=== PATIENT | female | born 1960 | race Caucasian/White ===

== ENCOUNTER 2020-06-21 08:15 | Outpatient (RCR) | payer MEDICARE, MEDICAID, SELFPAY ==
--- NOTE | 2020-05-25 15:24 | HO.PS.ADMBH ---
HPI Chief Complaint: depression Sources of Information: patient interviewed and chart reviewed HPI Narrative: I stopped all of my medications for a week. (Week of 05/15/20). I have never been to that point in my depression before. My sleep is still terrible. The 15 mg mirtazapine does not help. The panic is there also. I will see Dr. Platt next week. 59 yo female reports an increase of anxiety and depression. Sx increasing since 2015 with losses. 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 Several stressors-2 moves within 3 months, deaths of parents and brothers-2016, 2018, all of cancer-pt provided care for them, long hx of alcohol use disorder with solid sobriety- 2005 s/p DUI until January, February, Mar 2020. Pt states she is serious, ready to work and glad to have a chance to return to work on skills. She is in process of disability application with provisional status Past Psychiatric History: IP: Denies OP: Psychotherapy Deneen Morgan, Psychopharmacology Dr. Platt. Trials: Sertraline, Trazoone, Hydroxyzine PHP: Two admissions Medical Evaluation Reviewed: No (NA) [facility] Medical History (Updated 05/25/20 @ 15:39 by Lainey Solomon, BUSINESS DEVELOPMENT MANAGER) Barretts esophagus Diabetes Fracture of skull History of cardiac murmur as a child HTN (hypertension) IBS (irritable bowel syndrome) Thyroid cancer Narrative: Esophageal Hernia. Skull Fracture age 3 s/p fall down cellar stairs. Pt has had her flu shot. Recent BP 150/95 Family History: alcoholism, denies hx of mental illness Social History: Lives alone, currently unemployed, application for disability pending Substance History: Detox: No hx Rehab: No hx PHP: 2009 [facility] Alcohol-describes a very lifelong hx DUI 2005 sober until 2019 with 3 relapses beginning in January Trauma History: denies, however, describes combat experience, loss of family members as being traumatic Diagnostics EKG EKG Comment: EKG ordered today. Pt to go to [facility]. Meds/Allergies Meds Home Medications Medication Instructions Recorded Confirmed Type Vitamin D3 2,000 mcg PO DAILY 05/25/20 05/25/20 History conjugated estrogens [Premarin] 0.5 g VAGINAL 2XW 05/25/20 05/25/20 History famotidine 40 mg PO BEDTIME 05/25/20 05/25/20 History fluticasone propionate [Flovent 1 puff PO BID 05/25/20 05/25/20 History HFA] levothyroxine [Levoxyl] 75 mcg PO QAM 05/25/20 05/25/20 History lisinopril 40 mg PO DAILY 05/25/20 05/25/20 History metformin 500 mg PO BEDTIME 05/25/20 05/25/20 History omeprazole 20 mg PO BID 05/25/20 05/25/20 History simvastatin [Zocor] 40 mg PO BEDTIME 05/25/20 05/25/20 History vitamin U85-nqftb acid DAILY 05/25/20 History Narrative: Pt will begin [facility] this week. Allergies Allergies Allergy/AdvReac Type Severity Reaction Status Date / Time No Known Allergies Allergy Unverified 04/07/20 15:12 [No Known Allergies*] Mental Status Exam Mental Status Exam Patient Appearance: Well Grooomed and Appropriate Patient Orientation: Person, Place, Time and Situation Level of Consciousness: Awake, Appropriate and Alert Patient Behavior: Talkative, Cooperative, Anxious, Fatigued, Good Eye Contact and Crying Mood Description: Depressed, Anxious, Sad, Nervous and Apprehensive Affect Description: Flat Patient Cognition Impaired: No Ability to Follow Directions: Excellent Speech Pattern: Clear, Spontaneous Speech and Soft-Spoken Memory Description: Intact Hallucinations: None Delusions: Not Present Thought Process: Intact Thought Content: positive for Intact Depressive Symptoms: Increased Anxiety, Insomnia, Diff. Making Decisions, Difficulty Sleeping, Changes in Appetite (Eating two meals per day.), Loss of Int. in Activity, Feelings of Worthlessness, Hopelessness, Isolating-Friends/Family, Feelings of Guilt, Unhappiness, Increased Fatigue, Thoughts of /Suicide (passive, no current plan or intent.) and Low Self Esteem Judgement: Good Assessment & Plan Patient educated on: diagnosis, medication risk/benefits (Inc Mirtazapine to 30 mg hs; Inc Sertraline to 150 mg daily), substance abuse, therapeutic strategies and medical condition Informed Consent: understands and further education needed Reason for continued partial hosp. stay Substantial Risk for: harm to self, harm to others, inability to function, rapid decompensation and med/psych decompensation Certification I certify that partial hospital treatment is medically necessary due to the symptoms and problems resulting from the patient's mental illness and the failure to treat the patient at the partial hospital level of care would likely result in the patient requiring inpatient psychiatric care which could not be prevented at a less intensive level of care.
--- NOTE | 2020-05-26 13:18 | PC.ADMIT ---
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 Patient reports 3 relapsed on ETOH 3 times in 2019 once in January, February, and March. Stated she has been sober since 2005. Attends [facility] 2 x a week for more support. Stated she is at [facility] d/t, Because I want to save myself and I'm not sure how to do that . Patient denied current SI. Gave verbal permission to email her a copy of her safety plan and agrees to utilize this if needed. Patient also stated she has the [facility] crisis number. Patient stated she has an ultrasound schduled in a few weeks d/t elevated liver enzymes. Medications reconciled with patient and patients pharmacy. Reports decrease in appetite sometimes not eating for days d/t depression and anxiety. Also reports poor sleep only sleeping for 2-3 hrs.
[2020-05-26 14:25] VITALS: BMI 37.2
--- NOTE | 2020-05-30 15:13 | PC.NURSE ---
I called pt at her request, and spoke about aftercare options. She asked is she might be able to attend PHP and then IOP in the evening at [facility]. I told her I will look into that, but I don't think insurance will pay for it. We discussed options for online meetings. She is attending [facility] meetings already. Discussed In [facility] , and [facility] as well. Pt reported feeling more worried about my head than the alcohol problem . She reported feeling very depressed. She reproted no intent to suicide, but spoke about fear that she will get tot he point of suicide. We also discussed possibility of inpatient or [facility] if needed in the future, and I stressed that there are alot of options for treatment. Pt sounded more hopeful at the end of the conversation.
--- NOTE | 2020-05-30 15:20 | PC.NURSE ---
DARNELL Daley at [facility], pt's therapist
--- NOTE | 2020-05-30 15:32 | PC.NURSE ---
At pt's request, I called [facility] to confirm that they are not able to have a client in both PHP and IOP, as pt thought she might do both at the same time. They did confirm this. I called pt to let her know, and to reinforce the option of evening meetings and possibly a new motor coach tour operator. She agreed.
--- NOTE | 2020-05-31 14:08 | P.PNPSP_ITS ---
Subjective Subjective Date of Service: 05/31/20 Reason For Visit: depression Interim History: Margarita reports some improvement with sleep. Depressive sx can be overwhelming with mood swings, panic, no energy. Finding it difficult to pull herself through. Reports sobriety (since Mar). Asks for EKG results from [facility]. Medication Compliance: Yes Side effects from medications: No Attending Groups: Yes Review of Systems Reports behavioral changes Psychiatric: Reports abnormal sleep pattern, Reports anxiety, Reports behavioral changes, Reports depression, Reports hopelessness, Reports irritability, Reports anhedonia, Reports mood swings and Reports panic attacks Mental Status Exam Mental Status Exam Patient Orientation: Person, Place, Time and Situation Level of Consciousness: Awake and Alert Patient Behavior: Appropriate Mood Description: Depressed, Anxious, Labile (reports this sx), Nervous, Apprehensive and Expansive (at times) Affect Description: Anxious Patient Cognition Impaired: No Ability to Follow Directions: Excellent Speech Pattern: Clear, Appropriate and Spontaneous Speech Memory Description: Intact Hallucinations: None Delusions: Not Present Thought Process: Intact Thought Content: positive for Intact Depressive Symptoms: Increased Anxiety, Insomnia, Increased Irritability, Diffi culty Sleeping, Feelings of Worthlessness, Hopelessness, Unhappiness, Increased Fatigue, Low Self Esteem and Loss of Energy Judgement: Good Diagnostics Vital Signs (24Hr): Body Mass Index 37.2 Labs Labs: Labs scheduled in a few weeks. EKG EKG Comment: Requested today from [facility]. Assessment & Plan Patient educated on: medication risk/benefits and therapeutic strategies Informed Consent: understands and further education needed Reason for contiued partial hosp. stay Substantial Risk for: rapid decompensation Certification I certify that partial hospital treatment is medically necessary due to the symptoms and problems resulting from the patient's mental illness and the failure to treat the patient at the partial hospital level of care would likely result in the patient requiring inpatient psychiatric care which could not be prevented at a less intensive level of care. Greater than 50% of the session was spent on counseling and/or coordination of care Discharge Plan Discharge Attending provider: Srinivas Martell Additional Instructions: Discussed Lamictal trial with pt. She concurs. Unfortunately, there is an interaction with Premarin that makes this choice a risk. Will begin Seroquel 25 mg hs for mood stabilization, sleep assistance, anxiety assistance. Await EKG results from [facility] Medications: New sertraline 100 mg tablet 150 mg PO DAILY Qty: 45 RF: 0 quetiapine [Seroquel] 25 mg tablet 25 mg PO BEDTIME Qty: 7 RF: 0 Continued mirtazapine 30 mg tablet 30 mg PO BEDTIME Qty: 14 RF: 1 No Action famotidine 40 mg tablet 40 mg PO BEDTIME RF: 0 simvastatin [Zocor] 40 mg tablet 40 mg PO BEDTIME RF: 0 levothyroxine [Levoxyl] 75 mcg tablet 75 mcg PO QAM RF: 0 Premarin 0.625 mg/gram cream 0.5 g vaginal 2XW RF: 0 omeprazole 20 mg capsule,delayed release(DR/EC) 20 mg PO BID RF: 0 Flovent HFA 220 mcg/actuation HFA aerosol inhaler 1 puff PO BID RF: 0 lisinopril 40 mg tablet 40 mg PO DAILY RF: 0 metformin 500 mg tablet extended release 24 hr 500 mg PO BEDTIME RF: 0 Vitamin D3 2,000 mcg 2,000 mcg PO DAILY RF: 0 vitamin U53-ulufu acid DAILY RF: 0
--- NOTE | 2020-06-01 23:25 | P.EN_ITS ---
Event Note Date of Service: 06/01/20 Event Note: patient's EKG reviewed from [facility]. Was read as possible inferior ischemia patient denies chest pain or shortness of breath. T- wave inversion mostly seen in V1 AVR QTC unremarkable. Patient states she is feeling physically well feels more emotionally stable. mirtazapine prescription sent to pharmacy. Continue PHP treatment plan patient's EKG faxed to PCP recommended she review with her primary care physician. She does have risk factors of hypertension
--- NOTE | 2020-06-02 11:43 | PC.NURSE ---
Spoke with pt after first group due to concerns of almost manic-like behaviors and potential intoxication. Suzy Tee RN was present during conversation. When questioned, pt adamantly denied using alcohol but reported having cravings. Developed a plan for pt to call this clinician if she developed intent to use. Pt returned to group.
--- NOTE | 2020-06-06 15:48 | PC.NURSE ---
Referral was sent to [facility] for pt to join their dual diagnosis IOP. I called and spoke to Dr. Torres Dunlap, the program's director (cell-[phone]). He said they would be happy to take Margarita, but that they don't take medicaid, so pt would have a 20 percent copay. I called and spoke to pt. She was disappointed and said she is not able to pay the 20 percent copay. I called Dr. Dunlap back and let him know.
--- NOTE | 2020-06-08 11:58 | P.PNPSP_ITS ---
Subjective Subjective Date of Service: 06/08/20 Reason For Visit: depression Interim History: I need a refill of Seroquel. Just when it seems to be one foot on solid ground another problem comes up. There is no relief. Describes feeling sad, depressed, overwhelmed and scared. Current medical concerns she feels exacerbates the depression. Reports I am really worried but I promise I am trying. Overall not feeling much improvement with new medical stressors, however, sleep is improved, currently sleeping 4-5 hours per night. Denies SI, plan, intent yet acknowledged moments of feeling how much more can I bear-describes feeling raw and weak. PHP/IOP is helpful- It helps me to manage these burdens . Appetite is reportedly improved-eating ~2 meals/daily. Medication Compliance: Yes Side effects from medications: No Attending Groups: Yes Review of Systems Reports behavioral changes Psychiatric: Reports anxiety, Reports behavioral changes, Reports depression, Reports difficulty concentrating, Reports hopelessness and Reports panic attacks Mental Status Exam Mental Status Exam Patient Orientation: Person, Place, Time and Situation Level of Consciousness: Awake and Alert Patient Behavior: Appropriate, Cooperative, Anxious and Fearful Mood Description: Depressed and Anxious Affect Description: Flat Patient Cognition Impaired: No Ability to Follow Directions: Excellent Speech Pattern: Clear, Appropriate and Spontaneous Speech Memory Description: Intact Hallucinations: None Delusions: Not Present Thought Process: Intact Thought Content: positive for Intact, positive for [place] and positive for Circumstantial Depressive Symptoms: Increased Anxiety, Difficulty Sleeping (Improved to 4-5 hours per night), Unhappiness, Increased Fatigue, Thoughts of /Suicide (passive, without any plan or intent How much more can I take ), Low Self Esteem, Loss of Energy and Difficulty Concentrating Judgement: Fair Diagnostics Vital Signs (24Hr): Body Mass Index 37.2 EKG EKG Comment: ECHO scheduled. Pt in process of eval- Liver Ultrasound scheduled. Pt reports some abnormalities found (eval at [facility]) Assessment & Plan Patient educated on: medication risk/benefits and therapeutic strategies Informed Consent: understands Reason for contiued partial hosp. stay Substantial Risk for: harm to self, inability to function and rapid decompensation Certification I certify that partial hospital treatment is medically necessary due to the sy mptoms and problems resulting from the patient's mental illness and the failure to treat the patient at the partial hospital level of care would likely result in the patient requiring inpatient psychiatric care which could not be prevented at a less intensive level of care. Greater than 50% of the session was spent on counseling and/or coordination of care Discharge Plan Discharge Attending provider: Srinivas Martell Additional Instructions: 06/08/20: Continue current regime. Medications: New sertraline 100 mg tablet 150 mg PO DAILY Qty: 45 RF: 0 Continued mirtazapine 30 mg tablet 30 mg PO BEDTIME Qty: 30 RF: 1 quetiapine [Seroquel] 25 mg tablet 25 mg PO BEDTIME Qty: 14 RF: 0 No Action famotidine 40 mg tablet 40 mg PO BEDTIME RF: 0 simvastatin [Zocor] 40 mg tablet 40 mg PO BEDTIME RF: 0 levothyroxine [Levoxyl] 75 mcg tablet 75 mcg PO QAM RF: 0 Premarin 0.625 mg/gram cream 0.5 g vaginal 2XW RF: 0 omeprazole 20 mg capsule,delayed release(DR/EC) 20 mg PO BID RF: 0 Flovent HFA 220 mcg/actuation HFA aerosol inhaler 1 puff PO BID RF: 0 lisinopril 40 mg tablet 40 mg PO DAILY RF: 0 metformin 500 mg tablet extended release 24 hr 500 mg PO BEDTIME RF: 0 Vitamin D3 2,000 mcg 2,000 mcg PO DAILY RF: 0 vitamin Q32-feuyb acid DAILY RF: 0
--- NOTE | 2020-06-08 13:19 | PC.NURSE ---
Pt called and I spoke with her. She had a stress test yesterday, and said the results showed a swelling/thickening in the aortic valve in her heart, and thinning in the gomez of her heart in another area. She said she needs an echocardiogram (?) next. She also said she has to get an ultrasound of her liver. She said that because of how she's doing medically,a nd all of the upcoming treatment, she would no longer like to do an IOP following PHP. We spoke about day treatment at [facility], which is one group per day now, and she sounded interested. She asked me to put in a referral to day treatment. She also expressed deep concern about getting through Thanksgiving, as she has no friends or family. Discussed possibility staying in [facility] until after Thanksgiving.
--- NOTE | 2020-06-08 13:47 | PC.NURSE ---
I called and LM for Misty Winn at [facility] ([phone]) to refer pt to day treatment
--- NOTE | 2020-06-08 14:06 | PC.NURSE ---
I emailed Misty Winn from [facility] to refer pt to day tx
--- NOTE | 2020-06-10 08:37 | PC.NURSE ---
LM for Misty Winn at [facility] again, to refer pt to day tx
--- NOTE | 2020-06-13 14:04 | HO.PHPPROGNO ---
Subjective Subjective Date of Service: 06/13/20 Reason For Visit: depression Interim History: Margarita reports this is a difficult week and she is attempting to be mindful. Reflects upon having no family, friends, this being an anniversary week of her parents being seriously ill and having many triggers lingering. Her focus is staying sober. She reports she is not suicidal, has no plan, no intent, but does not feel different. Seroquel helps with grounding. She is unsure if the antidepressants are effective, however, the Seroquel augment is. Discussion of titration. Medication Compliance: Yes Side effects from medications: No Attending Groups: Yes Review of Systems Cardiovascular: Reports other (evaluation in process) Psychiatric: Reports anxiety, Reports depression, Reports hopelessness and Reports panic attacks Mental Status Exam Mental Status Exam Patient Orientation: Person, Place, Time and Situation Level of Consciousness: Awake, Appropriate and Alert Patient Behavior: Talkative, Cooperative and Anxious Mood Description: Depressed Affect Description: Flat Patient Cognition Impaired: No Ability to Follow Directions: Good Speech Pattern: Clear, Appropriate and Spontaneous Speech Memory Description: Intact Hallucinations: None Delusions: Not Present Thought Process: Intact and Goal Oriented Thought Content: positive for [place], positive for Circumstantial and positive for Goal Oriented Depressive Symptoms: Increased Anxiety, Hopelessness, Unhappiness, Increased Fatigue, Low Self Esteem and Loss of Energy Judgement: Good Diagnostics Vital Signs (24Hr): Body Mass Index 37.2 Labs Labs: Hep A-Negative, Hep B-Negative, Hep C-Negative GGT 414 (7-33) 06/06/20 Ferritin 199 (13-150) 06/06/20 CBC WNL A1C-6.5 (4.3-5.8) 05/23/20 CMP Glucose 146 (70-99) 05/23/20 Alk Phos 163 (39-117) AST 44 (0-37) 33 on 02/25/20 ALT 49 (0-40) 36 on 02/25/20 EKG EKG Comment: 05/27/20 Non specific T Wave Abnormality. No ischemic changes since 2013 in comparison Assessment & Plan Assessment & Plan (1) Severe recurrent major depression: Qualifiers: Psychotic features: without psychotic features Qualified Code(s): F33.2 - Major depressive disorder, recurrent severe without psychotic features Status: Acute Code(s): F33.2 - Major depressive disorder, recurrent severe without psychotic features (2) Alcohol use disorder, severe, dependence: Status: Chronic Code(s): F10.20 - Alcohol dependence, uncomplicated Assessment and Plan: Increase Seroquel to 50 mg HS Pt declines Naltrexone trial Patient educated on: diagnosis and medication risk/benefits (increase Seroquel to 50 mg HS) Informed Consent: understands Reason for contiued partial hosp. stay Substantial Risk for: harm to self, inability to function and rapid decompensation Certification I certify that partial hospital treatment is medically necessary due to the symptoms and problems resulting from the patient's mental illness and the failure to treat the patient at the partial hospital level of care would likely result in the patient requiring inpatient psychiatric care which could not be prevented at a less intensive level of care. Greater than 50% of the session was spent on counseling and/or coordination of care Discharge Plan Discharge Attending provider: Srinivas Martell Medications: New sertraline 100 mg tablet 150 mg PO DAILY Qty: 45 RF: 0 quetiapine [Seroquel] 50 mg tablet 50 mg PO BEDTIME Qty: 7 RF: 0 Continued mirtazapine 30 mg tablet 30 mg PO BEDTIME Qty: 30 RF: 1 No Action famotidine 40 mg tablet 40 mg PO BEDTIME RF: 0 simvastatin [Zocor] 40 mg tablet 40 mg PO BEDTIME RF: 0 levothyroxine [Levoxyl] 75 mcg tablet 75 mcg PO QAM RF: 0 Premarin 0.625 mg/gram cream 0.5 g vaginal 2XW RF: 0 omeprazole 20 mg capsule,delayed release(DR/EC) 20 mg PO BID RF: 0 Flovent HFA 220 mcg/actuation HFA aerosol inhaler 1 puff PO BID RF: 0 lisinopril 40 mg tablet 40 mg PO DAILY RF: 0 metformin 500 mg tablet extended release 24 hr 500 mg PO BEDTIME RF: 0 Vitamin D3 2,000 mcg 2,000 mcg PO DAILY RF: 0 vitamin W71-mkdfi acid DAILY RF: 0
--- NOTE | 2020-06-13 15:20 | PC.NURSE ---
I called several times and messages for Misty Winn from [facility] for referral to day treatment.
--- NOTE | 2020-06-13 15:21 | PC.NURSE ---
I called [facility] and DARNELL for [facility] , for information about [facility] IOP/PHP program. She called back and I spoke to her. She explained that they are doing a 6 hour per week instead of the regular PHP program since the start of [facility]. She said it's telehealth. She said she will send a referral form if I email her, and I did so. I called pt and she sounded eager to do this program if possible. She gave permission for me to place referral ( signed a virtual release). [facility]ary Jin explained that the program wont start for a few weeks, and that they might not take pt because she lives alone and we cannot prove that pt has been sober for the duration of her treatment stay here (due to the nature of online treatment right now).
--- NOTE | 2020-06-14 11:55 | PC.NURSE ---
I called and left another message for Misty Winn at [facility] to refer pt to day treatment. I gave her Lori Troncoso's number as well as my own.
--- NOTE | 2020-06-14 14:29 | PC.NURSE ---
I called and spoke with pt at her request. I told her Im still awaiting a referral form from [facility] 6 hour/wk program. (I also re-emailed Dinorah Jin and left ehr another msg, because she never emailed me back with a referral form). We spoke about other options, as I also still have not heard back from Misty Winn at [facility]. I told her about [facility], and she asked that I place a referral. I called [facility] and was informed that 1) medicare doesnt cover their (or any) SOAP program, and 2)Their dual dx IOP/PHP program cannot accept any more medicare clients at this time, as they have reached their cap.
--- NOTE | 2020-06-14 15:00 | PC.NURSE ---
I called and spoke to staff at both [facility], and [facility], in search of dual dx program pt might attend. [facility] said they have no current IOP due to COVID. [facility] said they have a program running and doing hybrid or zoom, but that they cannot take medicare.
--- NOTE | 2020-06-15 15:19 | HO.PHPPROGNO ---
Subjective Subjective Date of Service: 06/15/20 Reason For Visit: depression Interim History: It is a painful time Declines Naltrexone trial. States she has declined each time she was asked. Plans ultrasound on Saturday06/20/30. Seroquel increase she reports is tolerated but without changes. This is 70% me and 30% meds, I am trying to do things differently. Looking for [facility] dual diagnoses intake so she may focus on both addiction and mental health issues. Reports she has received lab results from [facility]. Medication Compliance: Yes Side effects from medications: No Attending Groups: Yes Review of Systems Reports behavioral changes Psychiatric: Reports anxiety, Reports behavioral changes, Reports depression, Reports difficulty concentrating, Reports hopelessness, Reports irritability and Reports anhedonia Mental Status Exam Mental Status Exam Patient Orientation: Person, Place, Time and Situation Level of Consciousness: Awake, Appropriate and Alert Patient Behavior: Appropriate, Talkative, Cooperative, Anxious and Fatigued Mood Description: Depressed and Anxious Affect Description: Flat Patient Cognition Impaired: No Ability to Follow Directions: Good Speech Pattern: Clear, Appropriate and Spontaneous Speech Memory Description: Intact Hallucinations: None Delusions: Not Present Thought Process: Intact Thought Content: positive for Intact Depressive Symptoms: Increased Anxiety, Loss of Int. in Activity, Hopelessness, Unhappiness, Increased Fatigue and Loss of Energy Judgement: Fair Diagnostics Vital Signs (24Hr): Body Mass Index 37.2 Assessment & Plan Assessment & Plan (1) Severe recurrent major depression: Qualifiers: Psychotic features: without psychotic features Qualified Code(s): F33.2 - Major depressive disorder, recurrent severe without psychotic features Status: Acute Code(s): F33.2 - Major depressive disorder, recurrent severe without psychotic features Assessment and Plan: Continue current regime Pt has resources for support given by team for holiday assistance Patient educated on: medication risk/benefits and therapeutic strategies Informed Consent: understands Reason for contiued partial hosp. stay Substantial Risk for: rapid decompensation Certification I certify that partial hospital treatment is medically necessary due to the symptoms and problems resulting from the patient's mental illness and the failure to treat the patient at the partial hospital level of care would likely result in the patient requiring inpatient psychiatric care which could not be prevented at a less intensive level of care. Greater than 50% of the session was spent on counseling and/or coordination of care Discharge Plan Discharge Attending provider: Srinivas Martell Medications: New sertraline 100 mg tablet 150 mg PO DAILY Qty: 45 RF: 0 quetiapine [Seroquel] 50 mg tablet 50 mg PO BEDTIME Qty: 7 RF: 0 Continued mirtazapine 30 mg tablet 30 mg PO BEDTIME Qty: 30 RF: 1 No Action famotidine 40 mg tablet 40 mg PO BEDTIME RF: 0 simvastatin [Zocor] 40 mg tablet 40 mg PO BEDTIME RF: 0 levothyroxine [Levoxyl] 75 mcg tablet 75 mcg PO QAM RF: 0 Premarin 0.625 mg/gram cream 0.5 g vaginal 2XW RF: 0 omeprazole 20 mg capsule,delayed release(DR/EC) 20 mg PO BID RF: 0 Flovent HFA 220 mcg/actuation HFA aerosol inhaler 1 puff PO BID RF: 0 lisinopril 40 mg tablet 40 mg PO DAILY RF: 0 metformin 500 mg tablet extended release 24 hr 500 mg PO BEDTIME RF: 0 Vitamin D3 2,000 mcg 2,000 mcg PO DAILY RF: 0 vitamin Q87-arrrp acid DAILY RF: 0
--- NOTE | 2020-06-20 11:23 | HO.PHPPROGNO ---
Subjective Subjective Date of Service: 06/20/20 Reason For Visit: depression Interim History: Margarita reports a long four day holiday. She reports she remained sober and without SI. She plans discharge for 06/21/20 and hopes for acceptance into [facility] program via telehealth. Medical eval and ECHO have been rescheduled from today. Pt continues to report difficulty with sleep-feels if sleep were improved she would feel less depressed. Discussed Seroquel titration. Psychopharmacology appt 06/28/20 with her provider, Dr. Platt. Medication Compliance: Yes Side effects from medications: No Attending Groups: Yes Review of Systems Psychiatric: Reports abnormal sleep pattern, Reports depression and Reports anhedonia Mental Status Exam Mental Status Exam Patient Orientation: Person, Place, Time and Situation Level of Consciousness: Awake, Appropriate and Alert Patient Behavior: Talkative, Cooperative, Anxious and Fatigued Mood Description: Constricted, Depressed, Fearful, Anxious, Nervous and Apprehensive Affect Description: Constricted Patient Cognition Impaired: No Ability to Follow Directions: Excellent Speech Pattern: Clear and Spontaneous Speech Memory Description: Intact Hallucinations: None Delusions: Not Present Thought Process: Intact and Distracted (mild) Thought Content: positive for Intact, positive for Lynn, positive for Circumstantial, positive for Goal Oriented and positive for Logical Depressive Symptoms: Increased Anxiety, Insomnia, Difficulty Sleeping, Loss of Int. in Activity, Hopelessness, Unhappiness, Increased Fatigue and Loss of Energy Judgement: Good Diagnostics Vital Signs (24Hr): Body Mass Index 37.2 Assessment & Plan Assessment & Plan (1) Severe recurrent major depression: Qualifiers: Psychotic features: without psychotic features Qualified Code(s): F33.2 - Major depressive disorder, recurrent severe without psychotic features Status: Acute Code(s): F33.2 - Major depressive disorder, recurrent severe without psychotic features Assessment and Plan: Continue Sertraline 150 mg daily and Mirtazapine 30 mg HS Increase Quetiapine to 100 mg HS. (2) Alcohol use disorder, severe, dependence: Status: Chronic Code(s): F10.20 - Alcohol dependence, uncomplicated Assessment and Plan: Pt/team working on [facility] telehealth program as a possibility. Patient educated on: medication risk/benefits and therapeutic strategies Informed Consent: understands and further education needed Reason for contiued partial hosp. stay Substantial Risk for: harm to self, inability to function and rapid decompensation Certification I certify that partial hospital treatment is medically necessary due to the symptoms and problems resulting from the patient's mental illness and the failure to treat the patient at the partial hospital level of care would likely result in the patient requiring inpatient psychiatric care which could not be prevented at a less intensive level of care. Greater than 50% of the session was spent on counseling and/or coordination of care Discharge Plan Discharge Attending provider: Srinivas Martell Medications: New quetiapine [Seroquel] 100 mg tablet 100 mg PO BEDTIME Qty: 14 RF: 0 Continued sertraline 100 mg tablet 150 mg PO DAILY Qty: 45 RF: 0 mirtazapine 30 mg tablet 30 mg PO BEDTIME Qty: 14 RF: 0 No Action famotidine 40 mg tablet 40 mg PO BEDTIME RF: 0 simvastatin [Zocor] 40 mg tablet 40 mg PO BEDTIME RF: 0 levothyroxine [Levoxyl] 75 mcg tablet 75 mcg PO QAM RF: 0 Premarin 0.625 mg/gram cream 0.5 g vaginal 2XW RF: 0 omeprazole 20 mg capsule,delayed release(DR/EC) 20 mg PO BID RF: 0 Flovent HFA 220 mcg/actuation HFA aerosol inhaler 1 puff PO BID RF: 0 lisinopril 40 mg tablet 40 mg PO DAILY RF: 0 metformin 500 mg tablet extended release 24 hr 500 mg PO BEDTIME RF: 0 Vitamin D3 2,000 mcg 2,000 mcg PO DAILY RF: 0 vitamin F33-hezud acid DAILY RF: 0
--- NOTE | 2020-06-21 14:16 | PC.NURSE ---
Margarita has been accepted to the [facility] program, which is running in lieu of their PHP during COVID. She has been instructed to call registration at [facility] tomorrow, 06/22/2020, at [phone], and then to call Hilary Jin [phone] to set up an intake date and time. This is a virtual program over telehealth. She also has an appt with her therapist, Deneen Bush, at 8:30 am on 06/22/2020, and an appt with Dr. Platt at 4pm on 06/28/2020.
--- NOTE | 2020-06-21 14:52 | PC.NURSE ---
I called and LM for pt's therapsit, Deneen Bush
== END 2020-06-21 23:55 | disposition home or self-care (01) ==
LOC: HO.PHPA 08:15
PROVIDERS: Visit Provider Psychiatry & Neurology Psychiatry
DX: F33.2 Major depressive disorder, recurrent severe without psychotic features (principal); F10.20 Alcohol dependence, uncomplicated
CPT/HCPCS: 90792; 90853; 99213

== ENCOUNTER 2020-11-23 08:15 | Outpatient (RCR) | payer MEDICARE, MEDICAID, SELFPAY ==
[2020-10-24 11:52] VITALS: BMI 38.7
--- NOTE | 2020-10-24 12:45 | PC.ADMIT ---
Patient is a 60 year old female who self referred to the [facility] d/t increase in depression with increased anxiety and panic attacks. Pt reports that she tapered down on her medications as she did not think she needed them and feels that this contributed to her symptoms in addition patient reports struggling with health issues that are impacting her mental health. She stated next Saturday she will be put on a engine monitor for a month and has a f/u appointment with [facility] in December. DX with VSD. Furthermore patient reports moving 3 times and is currently living in a hotel and is feeling isolated. Patient attended PHP in the past and has found it helpful. Patient is alert and oriented x4. Calm and cooperative. Denied current SI. Asked if she started to feel unsafe who could she call and patient stated [facility] crisis. Patient gave verbal permission to email her a copy of her safety plan. Medications reconciled with patient and patient's pharmacy. She reports that she is currently taking her medications as prescribed. Patient reports poor sleep, sleeping 3-4 hrs a night. Reports relapsing on ETOH last month for a day drinking 2-3 glasses of wine. Patient reports hx of attending online woman's AA group and [employer] and recommended that patient continue while in the program for more support.
--- NOTE | 2020-10-24 12:50 | P.HPPSP_ITS ---
HPI Chief Complaint: depression Sources of Information: patient interviewed and chart reviewed HPI Narrative: The patient is a 60 year old female, single, with no children, currently unemployed, with a very limited social support but highly functional at baseline, living alone with a very long history of depressive episodes elicited by depressed mood, anhedonia, lack of energy and feelings of hopelesness. She also has neurovegetative symptoms such as poor sleep and appettie disturbances. She stated that her mood worsened after the 200's when she had to take care of several family members and they eventually . She admitted also alcohol use disorder but she has long periods of sobriety (14 years). During the intake interview, she reported that her Zoloft was recently increased 2 weeks ago from 25 mg to 50 mg and she self-referred to [facility] due to her depressi on but no evidence of suicidal thoughts or psychosis. She adamantly denied manic symptoms in the past. We discussed her diagnosis, prognoisis and treatment options and she agreed to keep Zoloft on 50 mg and reassess in 1 week. She was able to contract for safety. Past Psychiatric History: IP: Denies OP: Psychotherapy Deneen Morgan, Psychopharmacology Dr. Platt. Trials: Sertraline, Trazoone, Hydroxyzine PHP: At least two admissions Medical Evaluation Reviewed: No [facility] Medical History Alcohol use disorder, severe, dependence Arthritis B12 deficiency Barretts esophagus Diabetes DM2 (diabetes mellitus, type 2) Eating disorder, unspecified Eczema Fracture of skull GERD (gastroesophageal reflux disease) History of cardiac murmur as a child HLD (hyperlipidemia) HTN (hypertension) Hx of fracture Hx of fracture of foot Hypothyroid IBS (irritable bowel syndrome) SHANNA (obstructive sleep apnea) Severe recurrent major depression Thyroid cancer Transient amnesia Ventricular septal defect (VSD) Vitamin D deficiency Surgical History H/O thyroidectomy H/O: hysterectomy Family History: alcoholism, denies hx of mental illness Social History: Lives alone, currently unemployed, application for disability pending Substance History: Described on HPI, past abuse of alcohol but with very long periods of sobriety. Trauma History: denies, however, describes combat experience, loss of family members as being traumatic Diagnostics Vital Signs (24Hr): Body Mass Index 38.7 Meds/Allergies Allergies Allergies Allergy/AdvReac Type Severity Reaction Status Date / Time No Known Allergies Allergy Verified 10/24/20 11:53 [No Known Allergies*] Mental Status Exam Mental Status Exam Patient Appearance: Well Grooomed and Appropriate Patient Orientation: Person, Place, Time and Situation Level of Consciousness: Awake and Appropriate Patient Behavior: Appropriate and Cooperative Mood Description: Calm Affect Description: Withdrawn Patient Cognition Impaired: No Ability to Follow Directions: Good Speech Pattern: Clear Memory Description: Intact Hallucinations: None Delusions: Not Present Thought Process: Goal Oriented Thought Content: positive for Intact Depressive Symptoms: Increased Anxiety, Insomnia and Feelings of Worthlessness Judgement: Fair Assessment & Plan Assessment & Plan (1) Severe recurrent major depression: Status: Acute Qualifiers: Psychotic features: without psychotic features Qualified Code(s): F33.2 - Major depressive disorder, recurrent severe without psychotic features Code(s): F33.2 - Major depressive disorder, recurrent severe without psychotic features Assessment and Plan: 1. Continue with Zoloft 50 mg po qam for another week. 2. Reassess in 1 week Certification I certify that partial hospital treatment is medically necessary due to the symptoms and problems resulting from the patient's mental illness and the failure to treat the patient at the partial hospital level of care would likely result in the patient requiring inpatient psychiatric care which could not be prevented at a less intensive level of care. Telehealth Telehealth Location of provider rendering services: practice address Location of patient: address on file Patient Identification confirmed using: Name, : Yes Telehealth method: video Patient verbally consented to treatment: Yes Patient verbally consented to billing insurance company: Yes Patient informed of any privacy concerns related to visit: Yes Time spent with patient (mins): 45
--- NOTE | 2020-10-24 14:26 | PC.NURSE ---
Case opened in treatment team
--- NOTE | 2020-11-01 13:33 | P.PNPSP_ITS ---
Subjective Subjective Date of Service: 11/01/20 Reason For Visit: depression Interim History: The patient reported that she has been depressed and overwhelmed. She feels that Zoloft is not working at this moment. We discussed options and she agreed to increase it. No safety concerns at this moment Medication Compliance: Yes Side effects from medications: No Attending Groups: Yes Review of Systems Review of Systems Yes all other systems are reviewed and are negative Mental Status Exam Mental Status Exam Patient Appearance: Well Grooomed Patient Orientation: Person, Place, Time and Situation Level of Consciousness: Awake and Appropriate Patient Behavior: Appropriate Mood Description: Calm and Withdrawn Affect Description: Calm Patient Cognition Impaired: No Ability to Follow Directions: Good Speech Pattern: Clear Memory Description: Intact Hallucinations: None Delusions: Not Present Thought Process: Intact Thought Content: positive for Circumstantial Depressive Symptoms: Crying Spells Judgement: Fair Diagnostics Vital Signs (24Hr): Body Mass Index 38.7 Assessment & Plan Assessment & Plan (1) Severe recurrent major depression: Qualifiers: Psychotic features: without psychotic features Qualified Code(s): F33.2 - Major depressive disorder, recurrent severe without psychotic features Status: Acute Code(s): F33.2 - Major depressive disorder, recurrent severe without psychotic features Assessment and Plan: 1. Increase Zoloft up to 100 mg po qam 2. Add Ambien 10 mg po qhs PRN insomnia. 3. F/U in 1 week. Certification I certify that partial hospital treatment is medically necessary due to the symptoms and problems resulting from the patient's mental illness and the zohra lure to treat the patient at the partial hospital level of care would likely result in the patient requiring inpatient psychiatric care which could not be prevented at a less intensive level of care. Greater than 50% of the session was spent on counseling and/or coordination of care Discharge Plan Discharge Attending provider: Vinayak Leone Primary Care Provider: Jenna Pinto Medications: New sertraline [Zoloft] 100 mg tablet 100 mg PO DAILY Qty: 14 RF: 0 zolpidem [Ambien] 10 mg tablet 10 mg PO BEDTIME PRN (Reason: insomnia) Qty: 14 RF: 0 Discontinued sertraline 50 mg Tablet 50 mg PO DAILY RF: 0 No Action famotidine 40 mg tablet 40 mg PO BEDTIME RF: 0 simvastatin [Zocor] 40 mg tablet 40 mg PO BEDTIME RF: 0 levothyroxine [Levoxyl] 75 mcg tablet 75 mcg PO QAM RF: 0 Premarin 0.625 mg/gram cream 0.5 g vaginal 2XW RF: 0 omeprazole 20 mg capsule,delayed release(DR/EC) 20 mg PO BID RF: 0 lisinopril 40 mg tablet 40 mg PO BEDTIME RF: 0 metformin 500 mg tablet extended release 24 hr 500 mg PO DAILY RF: 0 multivitamin Tablet 1 tab PO DAILY RF: 0 cyanocobalamin (vitamin B-12) [Vitamin B-12] 1,000 mcg Tablet 1,000 mcg PO DAILY RF: 0 hydrochlorothiazide 25 mg Tablet 12.5 mg PO DAILY RF: 0 cholecalciferol (vitamin D3) [Vitamin D3] 25 mcg (1,000 unit) Capsule 50 mcg PO DAILY RF: 0 Referrals: Jenna Pinto NP [Primary Care Provider] - Telehealth Telehealth Location of provider rendering services: practice address Location of patient: address on file Patient Identification confirmed using: Name, : No Telehealth method: video Patient verbally consented to treatment: Yes Patient verbally consented to billing insurance company: Yes Patient informed of any privacy concerns related to visit: No Time spent with patient (mins): 15
--- NOTE | 2020-11-02 08:40 | PC.NURSE ---
Client called and left a message that she didn't sleep and isn't feeling physically well so she is going back to bed and will be in tomorrow
--- NOTE | 2020-11-09 13:33 | HO.PHPPROGNO ---
Subjective Subjective Date of Service: 11/09/20 Reason For Visit: depression Interim History: The patient reported falling sleep with Ambien but she wakes up a few hours later. Not sure if she snores at night, she could have SHANNA. Psychoeducation was provided, her mood remains stable, chronically dysphoric but less anxious. We discussed options and she agreed on the plan below Medication Compliance: Yes Side effects from medications: No Attending Groups: Yes Review of Systems Review of Systems Yes all other systems are reviewed and are negative Mental Status Exam Mental Status Exam Patient Appearance: Well Grooomed Patient Orientation: Person, Place, Time and Situation Level of Consciousness: Awake and Appropriate Patient Behavior: Appropriate Mood Description: Calm Affect Description: Calm and Withdrawn Patient Cognition Impaired: No Ability to Follow Directions: Excellent Speech Pattern: Clear Memory Description: Intact Hallucinations: None Delusions: Not Present Thought Process: Goal Oriented Thought Content: positive for Intact Judgement: Fair Diagnostics Vital Signs (24Hr): Body Mass Index 38.7 Assessment & Plan Assessment & Plan (1) Severe recurrent major depression: Qualifiers: Psychotic features: without psychotic features Qualified Code(s): F33.2 - Major depressive disorder, recurrent severe without psychotic features Status: Acute Code(s): F33.2 - Major depressive disorder, recurrent severe without psychotic features Assessment and Plan: The patient is a middle age female with MDD and past history of alcohol use disorder. Currently with poor sleep. Plan: 1. Add Benadryl 50 at hs with Ambien. 2. Patient will use an cam to see if she has SHANNA. 3. F/U as per protocol. 4. Rest the same Certification I certify that partial hospital treatment is medically necessary due to the symptoms and problems resulting from the patient's mental illness and the failure to treat the patient at the partial hospital level of care would likely result in the patient requiring inpatient psychiatric care which could not be prevented at a less intensive level of care. Greater than 50% of the session was spent on counseling and/or coordination of care Discharge Plan Discharge Attending provider: Vinayak Leone Primary Care Provider: Jenna Pinto Medications: New diphenhydramine HCl 50 mg capsule 50 mg PO BEDTIME Qty: 14 RF: 1 Continued sertraline [Zoloft] 100 mg tablet 100 mg PO DAILY Qty: 14 RF: 1 zolpidem [Ambien] 10 mg tablet 10 mg PO BEDTIME PRN (Reason: insomnia) Qty: 14 RF: 1 Discontinued sertraline 50 mg Tablet 50 mg PO DAILY RF: 0 No Action famotidine 40 mg tablet 40 mg PO BEDTIME RF: 0 simvastatin [Zocor] 40 mg tablet 40 mg PO BEDTIME RF: 0 levothyroxine [Levoxyl] 75 mcg tablet 75 mcg PO QAM RF: 0 Premarin 0.625 mg/gram cream 0.5 g vaginal 2XW RF: 0 omeprazole 20 mg capsule,delayed release(DR/EC) 20 mg PO BID RF: 0 lisinopril 40 mg tablet 40 mg PO BEDTIME RF: 0 metformin 500 mg tablet extended release 24 hr 500 mg PO DAILY RF: 0 multivitamin Tablet 1 tab PO DAILY RF: 0 cyanocobalamin (vitamin B-12) [Vitamin B-12] 1,000 mcg Tablet 1,000 mcg PO DAILY RF: 0 hydrochlorothiazide 25 mg Tablet 12.5 mg PO DAILY RF: 0 cholecalciferol (vitamin D3) [Vitamin D3] 25 mcg (1,000 unit) Capsule 50 mcg PO DAILY RF: 0 Referrals: Jenna Pinto NP [Primary Care Provider] - Telehealth Telehealth Location of provider rendering services: practice address Location of patient: address on file Patient Identification confirmed using: Name, : No Telehealth method: video Patient verbally consented to treatment: Yes Patient verbally consented to billing insurance company: Yes Patient informed of any privacy concerns related to visit: No Time spent with patient (mins): 15
--- NOTE | 2020-11-15 13:59 | PC.NURSE ---
During 3rd group, pt shared that she was feeling bad and scared regarding upcoming surgery. Pt reported that she felt suicidal during lunch, however she had no plan or intent. Pt reports that she does not know how much more she can take. TW reached out to pt following group to ensure safety. Discussed coping skills and strategies pt can use to get through trying moments. Pt reported that she was safe, and had no plan or intent to hurt herself.
--- NOTE | 2020-11-16 12:26 | P.PNPSP_ITS ---
Subjective Subjective Date of Service: 11/16/20 Reason For Visit: depression Interim History: The patient reported that she is stressed out since she is going to have open heart surgery on November. Today, she feels depressed and scared. Medication Compliance: Yes Side effects from medications: No Review of Systems Acute medical concerns: Yes Her green tire inspector followed her and she is going to have an open heart surgery Mental Status Exam Mental Status Exam Patient Appearance: Well Grooomed Patient Orientation: Person, Place, Time and Situation Level of Consciousness: Awake Patient Behavior: Appropriate Mood Description: Calm Affect Description: Constricted Patient Cognition Impaired: No Ability to Follow Directions: Good Speech Pattern: Clear Memory Description: Intact Hallucinations: None Delusions: Not Present Thought Process: Goal Oriented Thought Content: positive for Intact Depressive Symptoms: Increased Anxiety Judgement: Fair Diagnostics Vital Signs (24Hr): Body Mass Index 38.7 Assessment & Plan Assessment & Plan (1) Severe recurrent major depression: Qualifiers: Psychotic features: without psychotic features Qualified Code(s): F33.2 - Major depressive disorder, recurrent severe without psychotic features Status: Acute Code(s): F33.2 - Major depressive disorder, recurrent severe without psychotic features Assessment and Plan: The patient is a middle age with MDD. Plan: 1. Keep same treatment. 2. F/U as per protocol. Certification I certify that partial hospital treatment is medically necessary due to the symptoms and problems resulting from the patient's mental illness and the failure to treat the patient at the partial hospital level of care would likely result in the patient requiring inpatient psychiatric care which could not be prevented at a less intensive level of care. Greater than 50% of the session was spent on counseling and/or coordination of care Discharge Plan Discharge Attending provider: Vinayak Leone Primary Care Provider: Jenna Pinto Medications: New diphenhydramine HCl 50 mg capsule 50 mg PO BEDTIME Qty: 14 RF: 1 Continued sertraline [Zoloft] 100 mg tablet 100 mg PO DAILY Qty: 14 RF: 1 zolpidem [Ambien] 10 mg tablet 10 mg PO BEDTIME PRN (Reason: insomnia) Qty: 14 RF: 1 Discontinued sertraline 50 mg Tablet 50 mg PO DAILY RF: 0 No Action famotidine 40 mg tablet 40 mg PO BEDTIME RF: 0 simvastatin [Zocor] 40 mg tablet 40 mg PO BEDTIME RF: 0 levothyroxine [Levoxyl] 75 mcg tablet 75 mcg PO QAM RF: 0 Premarin 0.625 mg/gram cream 0.5 g vaginal 2XW RF: 0 omeprazole 20 mg capsule,delayed release(DR/EC) 20 mg PO BID RF: 0 lisinopril 40 mg tablet 40 mg PO BEDTIME RF: 0 metformin 500 mg tablet extended release 24 hr 500 mg PO DAILY RF: 0 multivitamin Tablet 1 tab PO DAILY RF: 0 cyanocobalamin (vitamin B-12) [Vitamin B-12] 1,000 mcg Tablet 1,000 mcg PO DAILY RF: 0 hydrochlorothiazide 25 mg Tablet 12.5 mg PO DAILY RF: 0 cholecalciferol (vitamin D3) [Vitamin D3] 25 mcg (1,000 unit) Capsule 50 mcg PO DAILY RF: 0 Referrals: Jenna Pinto NP [Primary Care Provider] - Telehealth Telehealth Location of provider rendering services: practice address Location of patient: address on file Patient Identification confirmed using: Name, : Yes Telehealth method: video Patient verbally consented to treatment: Yes Patient verbally consented to billing insurance company: Yes Patient informed of any privacy concerns related to visit: No Time spent with patient (mins): 15
--- NOTE | 2020-11-17 14:43 | PC.NURSE ---
I attempted to call client several times to discuss her schedule and her phone was busy each attempt.
--- NOTE | 2020-11-17 16:14 | PC.NURSE ---
I spoke with the client about her feeling overwhelmed and stating she doesn't know how much more she can take. She states that she is feeling some hopelessness. She assured me she will not drink and will be safe tonight. We discussed how to make it through tonight safely, e.g distract with a movie, go to bed early, and she made plans to call me at 8 am tomorrow. We talked about not discharging from [facility] tomorrow and staying at least until Saturday. I gave her the phone number for crisis and told her that she could also go to the emergency room if needed. She contracts for safety and will call in the am.
--- NOTE | 2020-11-18 09:37 | PC.NURSE ---
Spoke to patient this morning and she complained of severe anxiety. She stated she does not want to hurt herself and does not want to drink ETOH. She is having cravings for ETOH. She is proud of the fact that she is not drinking his time and does not want to drink. In the past patient would use alcohol to deal with her emotions. Patient reports that she is attending online substance group [facility] and [email or web address]. Patient also encouraged to attend groups over the weekend for more support. Asked if she is safe and patient stated right now she does not have a plan or intent to hurt herself, can I say that I'm 100 percent safe, no, but I will work through that today . Patient stated she does not want to go inpatient. Patient would like to see the prescriber today to talk about medication for severe anxiety. Also talked about checking in with staff after weekend planning to see how she was doing.
--- NOTE | 2020-11-18 11:51 | PC.NURSE ---
Checked in with patient per her request after the second group. She stated she was no better and no worse. Stated that groups help and that she is ok and she would tell me if she is not ok. She wants to attend more groups. Struggling with early sobriety. 25 days sober. Stated that she would go to wine 50 percent of the time when she is feeling this way. Patient reports she has remained sober. Patient reports passive SI having feelings of not wanting to live . Denied plan or intent to kill herself. Wants to manage her anxiety. Stated she feels like, crap but wants to push through, I want to drink really bad but I don't . Patient stated she was going to put in an application this weekend for an apartment that she really wants however is ambivalent as she does not want to increase her stress level at this time in addition to this she is going through medical issues. Patient has the crisis number if needed.
--- NOTE | 2020-11-18 13:25 | HO.PHPPROGNO ---
Subjective Subjective Date of Service: 11/18/20 Reason For Visit: depression Interim History: The patient reported that she has overwhelming anxiety exacerbated due to her new medical problems. She is thinking of going [facility] or inpatient. At this point, she is safe in the community Medication Compliance: Yes Side effects from medications: No Attending Groups: Yes Review of Systems Acute medical concerns: Yes New appointment for an open surgery heart Medical Review of Systems: changed Mental Status Exam Mental Status Exam Patient Appearance: Well Grooomed Patient Orientation: Person, Place, Time and Situation Level of Consciousness: Awake Patient Behavior: Appropriate Mood Description: Calm Affect Description: Withdrawn Patient Cognition Impaired: No Ability to Follow Directions: Good Speech Pattern: Clear Memory Description: Intact Hallucinations: None Delusions: Not Present Thought Process: Goal Oriented Thought Content: positive for Preoccupation Depressive Symptoms: Increased Anxiety Judgement: Fair Diagnostics Vital Signs (24Hr): Body Mass Index 38.7 Assessment & Plan Assessment & Plan (1) Severe recurrent major depression: Qualifiers: Psychotic features: without psychotic features Qualified Code(s): F33.2 - Major depressive disorder, recurrent severe without psychotic features Status: Acute Code(s): F33.2 - Major depressive disorder, recurrent severe without psychotic features Assessment and Plan: Plan: Add Gabapentin 100 mg po tid. Rest the same. Certification I certify that partial hospital treatment is medically necessary due to the symptoms and problems resulting from the patient's mental illness and the failure to treat the patient at the partial hospital level of care would likely result in the patient requiring inpatient psychiatric care which could not be prevented at a less intensive level of care. Greater than 50% of the session was spent on counseling and/or coordination of care Discharge Plan Discharge Attending provider: Vinayak Leone Primary Care Provider: Jenna Pinto Medications: New diphenhydramine HCl 50 mg capsule 50 mg PO BEDTIME Qty: 14 RF: 1 gabapentin 100 mg capsule 100 mg PO TID Qty: 21 RF: 0 Continued sertraline [Zoloft] 100 mg tablet 100 mg PO DAILY 30 Days Qty: 30 RF: 1 zolpidem [Ambien] 10 mg tablet 10 mg PO BEDTIME PRN (Reason: insomnia) 30 Days Qty: 30 RF: 1 Discontinued sertraline 50 mg Tablet 50 mg PO DAILY RF: 0 No Action famotidine 40 mg tablet 40 mg PO BEDTIME RF: 0 simvastatin [Zocor] 40 mg tablet 40 mg PO BEDTIME RF: 0 levothyroxine [Levoxyl] 75 mcg tablet 75 mcg PO QAM RF: 0 Premarin 0.625 mg/gram cream 0.5 g vaginal 2XW RF: 0 omeprazole 20 mg capsule,delayed release(DR/EC) 20 mg PO BID RF: 0 lisinopril 40 mg tablet 40 mg PO BEDTIME RF: 0 metformin 500 mg tablet extended release 24 hr 500 mg PO DAILY RF: 0 multivitamin Tablet 1 tab PO DAILY RF: 0 cyanocobalamin (vitamin B-12) [Vitamin B-12] 1,000 mcg Tablet 1,000 mcg PO DAILY RF: 0 hydrochlorothiazide 25 mg Tablet 12.5 mg PO DAILY RF: 0 cholecalciferol (vitamin D3) [Vitamin D3] 25 mcg (1,000 unit) Capsule 50 mcg PO DAILY RF: 0 Referrals: Jenna Pinto NP [Primary Care Provider] - Telehealth Telehealth Location of provider rendering services: practice address Location of patient: address on file Patient Identification confirmed using: Name, : Yes Telehealth method: video Patient verbally consented to treatment: Yes Patient verbally consented to billing insurance company: Yes Patient informed of any privacy concerns related to visit: No Time spent with patient (mins): 15
--- NOTE | 2020-11-18 14:09 | PC.NURSE ---
Patient called and stated she is ok she has new medication from the prescriber today that she plans on picking up in an hour to help with her anxiety. Patient denied SI, denied plan or intent to kill herself. She stated she is safe. She stated if I wanted you to worry I would tell you you need to worry, I have the skills, I'm going to be ok because I want to be ok . Patient did state that she feels anxious and is uncomfortable being anxious. If feeling worse over the weekend the plan per patient is to call 1. Suicide hotline, 2. Crisis, 3. [address] [facility] for a crisis evaluation. Patient stated she is comfortable with the plan and knows what she needs to do if feeling unsafe, stated she is feeling a little stronger. Plan is located on her refrigerator. Patient stated if she is hospitalized over the weekend I don't think its going to happen, my noggin is sometimes not on straight and I may forget to call you to tell you I'm in the hospital so could you call the hospital and check on me . I agreed. Talked about the reasons she should not drink including it makes me sick and miserable, it does not help and I don't take my meds'. Plans on making herself a grilled cheese and watching a movie.
--- NOTE | 2020-11-22 13:32 | HO.PHPPROGNO ---
Subjective Subjective Date of Service: 11/22/20 Reason For Visit: depression Interim History: The patient reported improvement of her anxiety with Gabapentin. No safety issues. Medication Compliance: Yes Side effects from medications: No Attending Groups: Yes Review of Systems Acute medical concerns: No Medical Review of Systems: unchanged Mental Status Exam Mental Status Exam Patient Appearance: Well Grooomed Patient Orientation: Person, Place, Time and Situation Level of Consciousness: Awake and Appropriate Patient Behavior: Appropriate Mood Description: Calm Affect Description: Appropriate Patient Cognition Impaired: No Ability to Follow Directions: Good Speech Pattern: Clear Memory Description: Intact Hallucinations: None Delusions: Not Present Thought Process: Goal Oriented Thought Content: positive for Intact Judgement: Fair Diagnostics Vital Signs (24Hr): Body Mass Index 38.7 Assessment & Plan Assessment & Plan (1) Severe recurrent major depression: Qualifiers: Psychotic features: without psychotic features Qualified Code(s): F33.2 - Major depressive disorder, recurrent severe without psychotic features Status: Acute Code(s): F33.2 - Major depressive disorder, recurrent severe without psychotic features Assessment and Plan: The patient is a middle age female with MDD, past history of alcohol idosrder and other medical problmes. Plan: Keep same treatment Certification I certify that partial hospital treatment is medically necessary due to the symptoms and problems resulting from the patient's mental illness and the failure to treat the patient at the partial hospital level of care would likely result in the patient requiring inpatient psychiatric care which could not be prevented at a less intensive level of care. Greater than 50% of the session was spent on counseling and/or coordination of care Discharge Plan Discharge Attending provider: Vinayak Leone Primary Care Provider: Jenna Pinto Medications: Continued gabapentin 100 mg capsule 100 mg PO TID 30 Days Qty: 90 RF: 1 sertraline [Zoloft] 100 mg tablet 100 mg PO DAILY 30 Days Qty: 30 RF: 1 zolpidem [Ambien] 10 mg tablet 10 mg PO BEDTIME PRN (Reason: insomnia) 30 Days Qty: 30 RF: 1 diphenhydramine HCl 50 mg capsule 50 mg PO BEDTIME 30 Days Qty: 30 RF: 1 Discontinued sertraline 50 mg Tablet 50 mg PO DAILY RF: 0 No Action famotidine 40 mg tablet 40 mg PO BEDTIME RF: 0 simvastatin [Zocor] 40 mg tablet 40 mg PO BEDTIME RF: 0 levothyroxine [Levoxyl] 75 mcg tablet 75 mcg PO QAM RF: 0 Premarin 0.625 mg/gram cream 0.5 g vaginal 2XW RF: 0 omeprazole 20 mg capsule,delayed release(DR/EC) 20 mg PO BID RF: 0 lisinopril 40 mg tablet 40 mg PO BEDTIME RF: 0 metformin 500 mg tablet extended release 24 hr 500 mg PO DAILY RF: 0 multivitamin Tablet 1 tab PO DAILY RF: 0 cyanocobalamin (vitamin B-12) [Vitamin B-12] 1,000 mcg Tablet 1,000 mcg PO DAILY RF: 0 hydrochlorothiazide 25 mg Tablet 12.5 mg PO DAILY RF: 0 cholecalciferol (vitamin D3) [Vitamin D3] 25 mcg (1,000 unit) Capsule 50 mcg PO DAILY RF: 0 Referrals: Jenna Pinto NP [Primary Care Provider] - Telehealth Telehealth Location of provider rendering services: practice address Location of patient: address on file Patient Identification confirmed using: Name, : Yes Telehealth method: video Patient verbally consented to treatment: Yes Patient verbally consented to billing insurance company: Yes Patient informed of any privacy concerns related to visit: No Time spent with patient (mins): 15
--- NOTE | 2020-11-22 15:32 | PC.NURSE ---
The client requested I refer her to [facility] program as she does not want to go to [facility]. I reviewed the release of information form with her, she consented and I agreed to send over a referral to [place]
--- NOTE | 2020-11-22 15:36 | PC.NURSE ---
I called [facility] to inquire about referral process. I then filled out their referral form for IOP and it was faxed in.
--- NOTE | 2020-11-23 10:43 | PC.NURSE ---
Patient is discharging from the program today. Reviewed medication list with patient. Patient appears to understand her medications and reports taking them as prescribed. Patient stated her PCP prescribes her medicaions. Medication list faxed to patients PCP Ledy Pinto.
--- NOTE | 2020-11-23 14:26 | PC.NURSE ---
I left a message with the clients therapist Ledy villatoro Clients discharge and follow up plans
--- NOTE | 2020-11-23 14:30 | PC.NURSE ---
When I spoke with the client to discuss discharge plands she states that she wants to have her PCP Ledy Pinto continue to manage her medication. She states that Ledy has agreed to do so.
== END 2020-11-24 08:37 | disposition home or self-care (01) ==
LOC: HO.PHPA 08:15
PROVIDERS: PCP Nurse Practitioner Adult Health; Visit Provider Psychiatry & Neurology Psychiatry
DX: F33.2 Major depressive disorder, recurrent severe without psychotic features (principal); F41.9 Anxiety disorder, unspecified; Z79.899 Other long term (current) drug therapy
CPT/HCPCS: 90791; 90853

== ENCOUNTER 2024-01-13 13:46 | Emergency (ER) | payer MEDICARE, MEDICAID, SELFPAY ==
--- NOTE | ~2024-01-13 | XR_ITS ---
EXAMINATION: XR CHEST CLINICAL INFORMATION: Hypoxia COMPARISON: None available. TECHNIQUE: Frontal view of the chest was obtained. FINDINGS: No significant abnormality is noted involving the heart, lungs, mediastinum, bony thorax or soft tissues. XR/XR chest 1V IMPRESSION: Unremarkable examination.
--- NOTE | 2024-01-13 14:07 | ECG_ITS ---
Test Reason : LOW 02 Blood Pressure : / mmHG Vent. Rate : 093 BPM Atrial Rate : 093 BPM P-R Int : 142 ms QRS Dur : 096 ms QT Int : 358 ms P-R-T Axes : 022 -21 -14 degrees QTc Int : 445 ms Normal sinus rhythm Minimal voltage criteria for LVH, may be normal variant ( R in aVL ) Nonspecific T wave abnormality Abnormal ECG No previous ECGs available Referred By: Carmen Mott Electronically Signed By:JOSIANE ESCALONA MD
--- NOTE | 2024-01-13 14:09 | ED.GENADULT ---
HPI - General Adult General Chief complaint: Psychiatric Symptoms Stated complaint: SEC 12,SI W/PLAN TO CUT SELF PER EMS Time Seen by Provider: 01/13/24 13:51 Source: patient and EMS Mode of arrival: EMS Limitations: no limitations History of Present Illness ED Provider: Dr. Carmen Mott HPI narrative: Patient comes to the emergency room complaining of anxiety, depression, vague SI. Patient admits that she made SI statements earlier today. Patient states about 2 weeks ago she did the same, seeked psychiatric help and then was discharged home. Per EMS, patient coming from assisted living. Although patient has no medical complaints, it was noted that patient's oxygen saturation is between 88 and 90%. Patient denies any recent URIs, fever or chills, no difficulty breathing or shortness of breath. Related Data Home Medications ?Medication ?Instructions ?Recorded ?Confirmed conjugated estrogens 0.625 mg/gram 0.5 g vaginal 2XW 05/25/20 10/24/20 vaginal cream (Premarin) famotidine 40 mg tablet 40 mg PO BEDTIME 05/25/20 10/24/20 levothyroxine 75 mcg tablet 75 mcg PO QAM 05/25/20 10/24/20 (Levoxyl) lisinopril 40 mg tablet 40 mg PO BEDTIME 05/25/20 10/24/20 metformin 500 mg tablet,extended 500 mg PO DAILY 05/25/20 10/24/20 release 24 hr omeprazole 20 mg capsule,delayed 20 mg PO BID 05/25/20 10/24/20 release simvastatin 40 mg tablet (Zocor) 40 mg PO BEDTIME 05/25/20 10/24/20 cholecalciferol (vitamin D3) 25 50 mcg PO DAILY 10/24/20 10/24/20 mcg (1,000 unit) capsule (Vitamin D3) cyanocobalamin (vitamin B-12) 1,000 mcg PO DAILY 10/24/20 10/24/20 1,000 mcg tablet (Vitamin B-12) hydrochlorothiazide 25 mg tablet 12.5 mg PO DAILY 10/24/20 10/24/20 multivitamin 1 tab PO DAILY 10/24/20 10/24/20 Previous Rx's ?Medication ?Instructions ?Recorded diphenhydramine HCl 50 mg capsule 50 mg PO BEDTIME 30 days #30 caps 11/22/20 gabapentin 100 mg capsule 100 mg PO TID 30 days #90 caps 11/22/20 sertraline 100 mg tablet (Zoloft) 100 mg PO DAILY 30 days #30 tabs 11/22/20 zolpidem 10 mg tablet (Ambien) 10 mg PO BEDTIME PRN insomnia 30 11/22/20 days #30 tabs Allergies Allergy/AdvReac Type Severity Reaction Status Date / Time No Known Allergies Allergy Verified 01/13/24 14:33 [No Known Allergies*] Review of Systems Review of Systems: Constitutional : No Weight loss, No Fever, No Chills, No Night Sweats, No Fatigue, No Malaise ENT/Mouth : No Hearing loss, No Ear Pain, No Nasal Congestion, No Sinus Pain, No Hoarseness, No sore throat, No Rhinorrhea, No Swallowing Difficulty Eyes: No Eye Pain, No Swelling, No Redness, No Foreign Body, No Discharge, No Vision Changes Cardiovascular : No Chest Pain, No SOB, No Dyspnea on Exertion, No Orthopnea, No Edema, No Palpitations Respiratory : No Cough, No Sputum, No Wheezing, No Smoke Exposure, No Dyspnea Gastrointestinal : No Nausea, No Vomiting, No Diarrhea, No Constipation, No abdominal Pain, No Hematochezia, No Melena Genitourinary : no irregular bleeding, No Dysuria, No Urinary Frequency, No Hematuria, No Urinary Incontinence, No Urgency, No Flank Pain, No Urinary Flow Changes, No Hesitancy Musculoskeletal : No joint pain, No Myalgias, No Joint Swelling Skin : No Skin Lesions, No rash Neuro : No Weakness, No Numbness, No Paresthesias, No Loss of Consciousness, No Dizziness, No Headache Psych : Complaining of anxiety and depression Heme/Lymph: No Bruising, No Bleeding,No Lymphadenopathy Endocrine : No Polyuria, No Polydipsia, No Temperature Intolerance PMFSH Past Medical History Medical History Eating disorder, unspecified HLD (hyperlipidemia) Vitamin D deficiency B12 deficiency Ventricular septal defect (VSD) DM2 (diabetes mellitus, type 2) Transient amnesia SHANNA (obstructive sleep apnea) GERD (gastroesophageal reflux disease) Hypothyroid Eczema Severe recurrent major depression Alcohol use disorder, severe, dependence Hx of fracture Hx of fracture of foot Arthritis Fracture of skull IBS (irritable bowel syndrome) Barretts esophagus History of cardiac murmur as a child HTN (hypertension) Thyroid cancer Diabetes Surgical History H/O thyroidectomy H/O: hysterectomy Social History Social History Household Members: None Alcohol intake: current Alcohol intake frequency: a few times a week Alcohol type: wine Comment: see above Smoked in Last 30 Days: No Use of substances other than those prescribed or required for medical reasons: No Advance Directives: No Advance Directives Information Provided: No Do you have a plan to hurt others: No Plan Patient : No Physical Exam ED Vital Signs: Vital Signs - 24 hr 01/13/24 14:25 01/13/24 14:36 01/13/24 14:36 Temperature 98.4 F 98.4 F Pulse Rate 102 H 102 H Respiratory Rate 12 12 12 Blood Pressure 124/82 124/82 Pulse Oximetry 90 L 90 L Oxygen Delivery Method Room Air Room Air 01/13/24 16:41 01/13/24 18:23 Temperature 97.2 F Pulse Rate 92 97 Respiratory Rate 14 18 Blood Pressure 117/77 130/63 Pulse Oximetry 94 93 Oxygen Delivery Method Room Air Room Air BMI result Body Mass Index 39.0 Const Other: Appearance: Alert. Oriented X3. No acute distress. Well-appearing Eyes: Pupils equal, round and reactive to light. ENT: Pharynx normal. Neck: Normal inspection. Neck supple. No lymph nodes noted. No crepitus CVS: Normal heart rate and rhythm. Pulses normal. Normal S1 and S2 Respiratory: No respiratory distress. Breath sounds normal. No Wheezing. No rales , oxygen saturation between 88-92% on room air Abdomen: Soft and nontender. No rigidity. No distention. Skin: Skin warm and dry. Normal skin color. Normal skin turgor. Extremities: No lower extremity edema. No Lacerations. No Rash Neuro: Oriented X 3. No motor deficit. No sensory deficit. Moving all extremities. No slurred speech. CN 2 through 12 grossly intact Psych: calm, cooperative, a bit anxious Course Course Course Narrative: -all of patient's labs pending -Ambulation trial pending -patient is on a Section 12, on a one-to-one -care team consult pending Medications Administered Discontinued Medications Generic Name Dose Route Start Last Admin Trade Name Freq PRN Reason Stop Dose Admin Magnesium Sulfate 2 gm in 50 mls @ 25 mls/hr 01/13/24 16:09 01/13/24 18:38 Magnesium Sulfate/H2o IV 01/13/24 18:08 Infused ONCE ONE Infusion Medical Decision Making Medical Decision Making MDM Narrative: -patient's hematology at baseline, no acute findings, patient's chemistry shows a magnesium of 1.2, ETOH level is 266, negative for drugs or UTI -patient's magnesium was repleted with IV magnesium 2 g. -patient refused repeat labs. -patient remains on a Section 12, waiting to be seen by the care team. Differential Diagnosis Differential Diagnoses: The differential diagnosis associated with the presentation includes (Alcohol abuse, alcohol dependence, anxiety, depression, suicidal ideation) Admission/Observation Consideration of admission/observation: Escalation of care including admission/observation considered (Patient waiting to be seen by the care team to determine disposition) Lab Data [facility] Lab Attestation statement: I reviewed the patient's lab results. 01/13/24 14:21 01/13/24 14:21 Labs: Lab Results 01/13/24 01/13/24 01/13/24 Range/Units 14:17 14:20 14:21 WBC 5.5 (4.8-10.8) X10*3/uL RBC 4.10 L (4.20-5.50) X10*6/uL Hgb 12.2 (12.0-16.0) g/dl Hct 35.0 L (37.0-47.0) % MCV 85.4 (80.0-98.0) fL MCH 29.8 (27.0-33.0) pg MCHC 34.9 (31.0-35.0) g/dl RDW 12.8 (11.0-16.0) % Plt Count 294 (160-400) X10*3/uL MPV 10.1 (9.4-12.3) fL Immature Gran % (Auto) 0.5 H (0.0-0.4) % Neut % (Auto) 51.0 (45-73) % Lymph % (Auto) 39.5 (20-40) % Reagan % (Auto) 5.6 (2-11) % Eos % (Auto) 2.5 (0-4) % Baso % (Auto) 0.9 (0-2) % Lymph # (Auto) 2.2 (1.2-4.9) X10*3/uL Reagan # (Auto) 0.3 (0.1-1.2) X10*3/uL Eos # (Auto) 0.1 (0.0-0.4) X10*3/uL Baso # (Auto) 0.1 (0.0-0.2) X10*3/uL Abs Immat Gran (auto) 0.03 (0.00-0.03) X10*3/uL Absolute Neuts (auto) 2.8 (2.0-8.3) x10*3/uL Absolute Nucleated RBC 0.000 (0.0-0.012) X10*3/uL Nucleated RBC % (auto) 0.0 (0.0-0.2) /100WBC PT (11.1-13.3) SEC INR (0.9-1.1) VBG pH (7.32-7.43) VBG pCO2 mmHg VBG pO2 mmHg VBG HCO3 (22-26) mmol/L VBG O2 Saturation % VBG Base Excess mmol/L Sodium 137 (135-145) mmol/L Potassium 4.0 (3.3-5.1) mmol/L Chloride 98 (96-108) mmol/L Carbon Dioxide 21 L (22-29) mmol/L Anion Gap 22 H (12-20) BUN 6 L (9-16) mg/dL Creatinine 0.74 (0.5-1.4) mg/dL Estim Creat Clear Calc 88.7 Estimated GFR > 60 POC Glucose (60-115) mg/dL Random Glucose 141 H (60-115) mg/dL Calcium 8.6 (8.4-10.2) mg/dL Magnesium 1.2 L* (1.6-2.6) mg/dL Total Bilirubin 0.2 (0.0-1.0) mg/dL Direct Bilirubin < 0.2 (0.0-0.5) mg/dL AST 23 (5-31) U/L ALT 27 (0-31) U/L Alkaline Phosphatase 125 H (39-117) U/L Troponin I High Sens < 2.7 (<3.5-17.0) ng/L B-Natriuretic Peptide < 10 (<100) pg/mL Total Protein 6.4 L (6.5-8.0) g/dL Albumin 4.0 (3.5-5.0) g/dL Urine Color Urine Appearance Urine pH (5.0-9.0) Ur Specific [place] (1.005-1.025) Urine Protein (Neg-Trace) mg/dL Urine Glucose (UA) (Negative) mg/dL Urine Ketones (Negative) mg/dL Urine Blood (Negative) Urine Nitrite (Negative) Ur Leukocyte Esterase (Negative) Urine Opiates Screen (Not Detect) Ur Buprenorphine Scrn (Not Detect) ng/mL Ur Oxycodone Screen (Not Detect) ng/mL Urine Methadone Screen (Not Detect) ng/mL Urine Fentanyl Screen (Not Detect) Ur Barbiturates Screen (Not Detect) Ur Phencyclidine Scrn (Not Detect) Ur Amphetamines Screen (Not Detect) U Benzodiazepines Scrn (Not Detect) Urine Cocaine Screen (Not Detect) U Marijuana (THC) Screen (Not Detect) Ethyl Alcohol 266 mg/dL COVID-19 (PATRICIA) Negative (Negative) COVID-19 Clin Com See Note Influenza Type A (CHRISTA) Cancelled Influenza Type A (PCR) NEGATIVE (Negative) Influenza Type B (CHRISTA) Cancelled Influenza Type B (PCR) NEGATIVE (Negative) Influenza A & B Note Cancelled RSV RNA Qual (PCR) NEGATIVE (Negative) SARS-CoV-2 RNA (RT-PCR) NEGATIVE (Negative) 01/13/24 01/13/24 01/13/24 Range/Units 14:23 15:04 17:22 WBC (4.8-10.8) X10*3/uL RBC (4.20-5.50) X10*6/uL Hgb (12.0-16.0) g/dl Hct (37.0-47.0) % MCV (80.0-98.0) fL MCH (27.0-33.0) pg MCHC (31.0-35.0) g/dl RDW (11.0-16.0) % Plt Count (160-400) X10*3/uL MPV (9.4-12.3) fL Immature Gran % (Auto) (0.0-0.4) % Neut % (Auto) (45-73) % Lymph % (Auto) (20-40) % Reagan % (Auto) (2-11) % Eos % (Auto) (0-4) % Baso % (Auto) (0-2) % Lymph # (Auto) (1.2-4.9) X10*3/uL Reagan # (Auto) (0.1-1.2) X10*3/uL Eos # (Auto) (0.0-0.4) X10*3/uL Baso # (Auto) (0.0-0.2) X10*3/uL Abs Immat Gran (auto) (0.00-0.03) X10*3/uL Absolute Neuts (auto) (2.0-8.3) x10*3/uL Absolute Nucleated RBC (0.0-0.012) X10*3/uL Nucleated RBC % (auto) (0.0-0.2) /100WBC PT 10.3 L (11.1-13.3) SEC INR 0.8 L (0.9-1.1) VBG pH 7.43 (7.32-7.43) VBG pCO2 29 mmHg VBG pO2 129 mmHg VBG HCO3 19 L (22-26) mmol/L VBG O2 Saturation 100.0 % VBG Base Excess -3.2 mmol/L Sodium (135-145) mmol/L Potassium (3.3-5.1) mmol/L Chloride (96-108) mmol/L Carbon Dioxide (22-29) mmol/L Anion Gap (12-20) BUN (9-16) mg/dL Creatinine (0.5-1.4) mg/dL Estim Creat Clear Calc Estimated GFR POC Glucose 163 H (60-115) mg/dL Random Glucose (60-115) mg/dL Calcium (8.4-10.2) mg/dL Magnesium (1.6-2.6) mg/dL Total Bilirubin (0.0-1.0) mg/dL Direct Bilirubin (0.0-0.5) mg/dL AST (5-31) U/L ALT (0-31) U/L Alkaline Phosphatase (39-117) U/L Troponin I High Sens (<3.5-17.0) ng/L B-Natriuretic Peptide (<100) pg/mL Total Protein (6.5-8.0) g/dL Albumin (3.5-5.0) g/dL Urine Color Yellow Urine Appearance Clear Urine pH 5.0 (5.0-9.0) Ur Specific [place] 1.010 (1.005-1.025) Urine Protein Negative (Neg-Trace) mg/dL Urine Glucose (UA) Negative (Negative) mg/dL Urine Ketones Negative (Negative) mg/dL Urine Blood Negative (Negative) Urine Nitrite Negative (Negative) Ur Leukocyte Esterase Negative (Negative) Urine Opiates Screen Not Detected (Not Detect) Ur Buprenorphine Scrn Not Detected (Not Detect) ng/mL Ur Oxycodone Screen Not Detected (Not Detect) ng/mL Urine Methadone Screen Not Detected (Not Detect) ng/mL Urine Fentanyl Screen Not Detected (Not Detect) Ur Barbiturates Screen Not Detected (Not Detect) Ur Phencyclidine Scrn Not Detected (Not Detect) Ur Amphetamines Screen Not Detected (Not Detect) U Benzodiazepines Scrn Not Detected (Not Detect) Urine Cocaine Screen Not Detected (Not Detect) U Marijuana (THC) Screen Not Detected (Not Detect) Ethyl Alcohol mg/dL COVID-19 (PATRICIA) (Negative) COVID-19 Clin Com Influenza Type A (CHRISTA) Influenza Type A (PCR) (Negative) Influenza Type B (CHRISTA) Influenza Type B (PCR) (Negative) Influenza A & B Note RSV RNA Qual (PCR) (Negative) SARS-CoV-2 RNA (RT-PCR) (Negative) Independent Interpretation I performed an independent interpretation of an: Plain X-Ray Radiology Impression Discussion of test interpretation with radiology: I have reviewed the radiologist's reading. Radiologist Impression: FINDINGS: No significant abnormality is noted involving the heart, lungs, mediastinum, bony thorax or soft tissues. XR/XR chest 1V IMPRESSION: Unremarkable examination. Critical Care Time Critical Care Time Critical Care Time: Yes Total Critical Care Time: 45 Attestation: I have personally provided critical care time. Time includes review of lab data, radiology results, discussion with consultants, and monitoring for potential decompensation. Intervention performed as documented. Discharge Plan Discharge Clinical Impression: Anxious depression, Hypomagnesemia Patient Disposition: Still a Patient Prescriptions: No Action famotidine 40 mg tablet 40 mg PO BEDTIME simvastatin [Zocor] 40 mg tablet 40 mg PO BEDTIME levothyroxine [Levoxyl] 75 mcg tablet 75 mcg PO QAM Premarin 0.625 mg/gram cream 0.5 g vaginal 2XW Rx Instructions: Takes on Saturday and Saturday omeprazole 20 mg capsule,delayed release(DR/EC) 20 mg PO BID lisinopril 40 mg tablet 40 mg PO BEDTIME metformin 500 mg tablet extended release 24 hr 500 mg PO DAILY Patient Comments: Patient takes at breakfast multivitamin Tablet 1 tab PO DAILY cyanocobalamin (vitamin B-12) [Vitamin B-12] 1,000 mcg Tablet 1,000 mcg PO DAILY hydrochlorothiazide 25 mg Tablet 12.5 mg PO DAILY Rx Instructions: 1/2 tab po daily cholecalciferol (vitamin D3) [Vitamin D3] 25 mcg (1,000 unit) Capsule 50 mcg PO DAILY gabapentin 100 mg capsule 100 mg PO TID 30 Days Qty: 90 1RF sertraline [Zoloft] 100 mg tablet 100 mg PO DAILY 30 Days Qty: 30 1RF zolpidem [Ambien] 10 mg tablet 10 mg PO BEDTIME PRN (Reason: insomnia) 30 Days Qty: 30 1RF diphenhydramine HCl 50 mg capsule 50 mg PO BEDTIME 30 Days Qty: 30 1RF Interventions: [place]-Suicide Risk Severity Scale Last Done: 01/13/24 14:34 Print Language: Serbian
[2024-01-13 14:25] VITALS: BP 124/82; BP 156/78; PULSE 102; RESP 12; TEMP 36.9; O2SAT 90; O2SAT 94; BMI 39.0
[2024-01-13 14:32] LABS: VBG Base Excess -3.2 mmol/L; VBG HCO3 19 mmol/L (22-26); VBG pCO2 29 mmHg; VBG pH 7.43 (7.32-7.43); VBG pO2 129 mmHg
[2024-01-13 14:32] LABS: Venous Blood Gas Refer to POC result
[2024-01-13 14:36] VITALS: BP 124/82; PULSE 102; RESP 12; TEMP 36.9; O2SAT 90
[2024-01-13 14:42] LABS: COVID-19 Test Negative (Negative); IDNOW Serial# 152EDE1D
[2024-01-13 14:43] LABS: Ethanol 266 mg/dL
--- NOTE | 2024-01-13 14:43 | PC.NURSE ---
patient arrives on section 12 from EMS after calling the crisis hotline and making comments that she wishes to harm herself by cutting her wrists and overdosing on her pills. patient is visably anxious for this rn frequently stating that she wishes to go home. patient educated that she is unable to go home at this time due to comments she made on the phone. patient currently agreeable to care. admits to feeling suicidal today and having similar thoughts in the past. patient admits to ETOH use today, states she had 2 glasses of wine and she usually drinks a few times during the week. patient pattern changer into appropriate hospital attire, belongings secured by security in laundry room. 1:1 sitter at bedside. patient noted to have low oxygen saturation on monitor, states she has a history of ventrical septal defect and that it will occasionally run low, patient saturating between 88-92% on room air, no apparent signs of distress, respirations are even and unlabored. patient blood work drawn and sent to lab. chest xray completed at bedside. awaiting medical clearence at this time]
[2024-01-13 14:51] LABS: B Type Natriuretic Peptide < 10 pg/mL (<100)
--- NOTE | 2024-01-13 14:59 | MHC.CARE ---
LATE ENTRY 1300, call from Alla at [facility] Crisis, patient evaluated at [facility], she reported suicidal ideation with plan, determine to need inpatient psychiatric treatment and stated a preference for [facility], sent by ambulance on a Section 12A. lead miner blasting notified of expect.
[2024-01-13 15:02] LABS: Troponin-I High Sensitivity < 2.7 ng/L (<3.5-17.0)
[2024-01-13 15:03] LABS: Alanine Aminotransferase 27 U/L (0-31); Alkaline Phosphatase 125 U/L (39-117); Anion Gap 22 (12-20); Aspartate Amino Transferase 23 U/L (5-31); Bilirubin Direct < 0.2 mg/dL (0.0-0.5); Bilirubin Total 0.2 mg/dL (0.0-1.0); Blood Urea Nitrogen 6 mg/dL (9-16); Calcium 8.6 mg/dL (8.4-10.2); Carbon Dioxide 21 mmol/L (22-29); Chloride 98 mmol/L (96-108); Creatinine Clr Calc Pharmacy 88.7; Estimated Glomerular Filt Rate > 60; Glucose Random 141 mg/dL (60-115); Magnesium 1.2 mg/dL (1.6-2.6); Sodium 137 mmol/L (135-145); Total Protein 6.4 g/dL (6.5-8.0)
[2024-01-13 15:10] LABS: MANUAL DIFF FLAG NO
[2024-01-13 15:11] LABS: Basophils Absolute Auto 0.1 X10*3/uL (0.0-0.2); Basophils Percent Auto 0.9 % (0-2); Eosinophils Absolute Auto 0.1 X10*3/uL (0.0-0.4); Eosinophils Percent Auto 2.5 % (0-4); Hemoglobin 12.2 g/dl (12.0-16.0); Imm Gran Abs Auto 0.03 X10*3/uL (0.00-0.03); Imm Gran Pct Auto 0.5 % (0.0-0.4); Lymphocytes Absolute Auto 2.2 X10*3/uL (1.2-4.9); Lymphocytes Percent Auto 39.5 % (20-40); Mean Corpuscular HGB Conc 34.9 g/dl (31.0-35.0); Mean Corpuscular Hemoglobin 29.8 pg (27.0-33.0); Mean Corpuscular Volume 85.4 fL (80.0-98.0); Mean Platelet Volume 10.1 fL (9.4-12.3); Monocytes Absolute Auto 0.3 X10*3/uL (0.1-1.2); Monocytes Percent Auto 5.6 % (2-11); Neutrophils Absolute Auto 2.8 x10*3/uL (2.0-8.3); Platelet Count 294 X10*3/uL (160-400); Red Cell Distribution Width 12.8 % (11.0-16.0); White Blood Count 5.5 X10*3/uL (4.8-10.8)
[2024-01-13 15:15] LABS: Appearance Urine Clear; Color Urine Yellow; Glucose Urine UA Negative (Negative); Leukocyte Esterase Urine Negative (Negative); Nitrite Urine Negative (Negative); Urine Blood Negative (Negative); Urine Ketones Negative (Negative); Urine Protein Negative (Neg-Trace)
[2024-01-13 15:20] LABS: INTERNATIONAL NORM RATIO 0.8 (0.9-1.1); Prothrombin Time 10.3 SEC (11.1-13.3)
[2024-01-13 15:25] LABS: Amphetamine Screen Urine Not Detected (Not Detect); Barbiturates, Urine Not Detected (Not Detect); Benzodiazepines Screen Urine Not Detected (Not Detect); Buprenorphine Scr Not Detected (Not Detect); Cannabinoid Screen Urine Not Detected (Not Detect); Cocaine Screen Urine Not Detected (Not Detect); Fentanyl, urine Not Detected (Not Detect); Methadone Screen, Urine Not Detected (Not Detect); Opiate Screen Urine Not Detected (Not Detect); Oxycodone Screen Urine Not Detected (Not Detect); Phencyclidine Screen Urine Not Detected (Not Detect)
--- NOTE | 2024-01-13 15:25 | PC.NURSE ---
Belongings locked in pod laundry room by security
[2024-01-13 15:31] LABS: Influenza A PCR NEGATIVE (Negative); Influenza B PCR NEGATIVE (Negative); Resp Syncy Virus RNA Qual PCR NEGATIVE (Negative); SARS COV2 PCR INHOUSE NEGATIVE (Negative)
[2024-01-13 16:41] VITALS: BP 117/77; PULSE 92; RESP 14; TEMP 36.2; O2SAT 94
[2024-01-13] MEDS: Magnesium Sulfate/H2O 2 GM/50 ML PIGGYBACK IV (16:44)
--- NOTE | 2024-01-13 16:45 | PC.NURSE ---
IV access placed to L lateral AC. Pt request to be move to the pod as the ED main area is increasing her anxiety. Care team involved and Pt aware there is a process to achieving this. Pt informed of low magnesium level and agrees to replacement therapy. Pt resting comfortably in bed with IV mag running.
[2024-01-13 17:26] LABS: Glucose, Whole Blood 163 mg/dL (60-115)
[2024-01-13 18:23] VITALS: BP 130/63; PULSE 97; RESP 18; O2SAT 93
--- NOTE | 2024-01-13 18:32 | MHC.EDTECH ---
THIS PCT ATTEMPT TO DRAW REPEATED MAGNESIUM ,AND PATIENT REFUSED ,PROVIDER CARLOS AND RN MADDIE AWARE .
--- NOTE | 2024-01-13 19:20 | MHC.EDTECH ---
Patient refused dinner ,rn aware .
--- NOTE | 2024-01-13 19:43 | PC.NURSE ---
called [facility] pharmacy to do med rec, pharmacist reports has not picked up medication since 2021
[2024-01-13] MEDS: Acetaminophen 325 MG TABLET 650 MG PO (20:58)
[2024-01-14] MEDS: Gabapentin 300 MG CAPSULE PO ×2 (00:43→09:50)
[2024-01-14] MEDS: Mirtazapine 15 MG TABLET PO (00:43)
[2024-01-14 06:16] VITALS: BP 178/94; PULSE 114; TEMP 36.6; O2SAT 95
[2024-01-14] MEDS: Levothyroxine Sodium 75 MCG TABLET PO (07:13)
[2024-01-14] MEDS: Omeprazole 40 MG CAPSULE.DR PO (07:14)
[2024-01-14 07:43] LABS: Anion Gap 15 (12-20); Blood Urea Nitrogen 9 mg/dL (9-16); Carbon Dioxide 27 mmol/L (22-29); Chloride 102 mmol/L (96-108); Creatinine Clr Calc Pharmacy 87.6; Estimated Glomerular Filt Rate > 60; Glucose Random 140 mg/dL (60-115); Magnesium 1.6 mg/dL (1.6-2.6); Potassium 4.3 mmol/L (3.3-5.1); Sodium 140 mmol/L (135-145)
[2024-01-14] MEDS: lisinopriL 40 MG TABLET PO (09:49)
[2024-01-14] MEDS: Cholecalciferol (Vitamin D3) 25 MCG TABLET 50 MCG PO (09:50)
[2024-01-14] MEDS: Magnesium Oxide 400 MG TABLET 800 MG PO (09:50)
[2024-01-14] MEDS: DULoxetine HCl 20 MG CAPSULE.DR PO (09:50)
[2024-01-14] MEDS: hydrOXYzine HCL 10 MG TABLET 20 MG PO (10:19)
[2024-01-14] MEDS: Acamprosate Calcium 333 MG TABLET.DR 666 MG PO (10:19)
--- NOTE | 2024-01-14 11:13 | MHC.RECOVRN ---
Briefly met with pt in [facility] after request from CARE Team to discuss alcohol use. Pt sitting in bed, awake, alert, easily engages in conversation. Pt reports drinking white wine, up to 1/2 gallon daily. Pt denies current withdrawal symptoms. Pt reports she has had extensive periods in recovery, longest was from [id number]. Pt reports she has outpatient supports in place, including PCP who prescribes CHAITANYA. Pt reports she takes Campral and naltrexone with positive effect. Reports she has been taking these medications for about 2 years. Pt reports she is also being connected to a control and recovery special tactics. Discussed other recovery supports and options, pt feels as though she has enough supports in place at this time. Pt denies questions or concerns for t/w.
[2024-01-14 12:32] VITALS: BP 178/94; PULSE 114; RESP 18; TEMP 36.6; O2SAT 95
== END 2024-01-14 12:41 | disposition home or self-care (01) ==
PROVIDERS: Emergency Medicine; Emergency Provider Emergency Medicine; PCP Family Medicine
DX: F33.1 Major depressive disorder, recurrent, moderate (principal); R45.851 Suicidal ideations; F41.9 Anxiety disorder, unspecified; E83.42 Hypomagnesemia; R06.02 Shortness of breath; M25.50 Pain in unspecified joint; R94.31 Abnormal electrocardiogram [ECG] [EKG]; Z03.818 Encounter for observation for suspected exposure to other biological agents ruled out; Z79.899 Other long term (current) drug therapy; Z51.81 Encounter for therapeutic drug level monitoring
CPT/HCPCS: 0241U; 36415; 71045; 80048; 80076; 80307; 81003; 82803; 82947; 83735; 83880; 84484; 85025; 85610; 87635; 93005; 99285; J3475; S9485

== ENCOUNTER → 2024-01-13 14:07 | Outpatient (BNV) | payer MEDICARE, MEDICAID, SELFPAY | PROVIDERS: Emergency Provider Emergency Medicine; PCP Family Medicine; Visit Provider Internal Medicine Cardiovascular Disease | DX: R94.31 Abnormal electrocardiogram [ECG] [EKG] (principal) | CPT/HCPCS: 93010 ==